=== PATIENT | male | born 1980 | race Caucasian/White ===

== ENCOUNTER 2018-11-27 19:10 | Inpatient (IN) | payer BC ==
[~2018-11-27] VITALS: Ht 175.3 cm; Wt 79.1 kg
[2018-11-27 19:32] LABS: BASOPHILS 0.1 % (0-2); EOSINOPHILS 0.1 % (0-7); HEMATOCRIT 49.5 % (42.0-54.0); HEMOGLOBIN 17.9 g/dL (13.5-17.5); IMMATURE GRANULOCYTES 0.3 % (0-5); LYMPHOCYTES 5.3 % (15-50); MCH 33.8 pg (26.0-34.0); MCHC 36.2 g/dL (31.0-37.0); MCV 93.4 fL (80.0-100.0); MONOCYTES 7.2 % (2-11); PLATELET COUNT 237 10x3/uL (130-400); WBC 15.6 10x3/uL (4.8-10.8)
[2018-11-27 19:47] LABS: ALBUMIN 3.9 g/dL (3.4-5.0); ALKALINE PHOSPHATASE 60 U/L (46-116); ALT (SGPT) 38 U/L (10-68); CALC OSMOLALITY 276 mosm/kg (275-300); CALCIUM 10.5 mg/dL (8.5-10.1); CARBON DIOXIDE 30.3 mmol/L (21.0-32.0); CHLORIDE - SERUM 99 mmol/L (98-107); GLUCOSE 126 mg/dL (74-106); POTASSIUM - SERUM 3.7 mmol/L (3.5-5.1); PROTEIN - SERUM 8.5 g/dL (6.4-8.2); SODIUM 139 mmol/L (136-145); UREA NITROGEN 5 mg/dL (7-18); eGFR NON AFRICAN AMERICAN 89 mL/min (90-120)
[2018-11-27 19:50] LABS: AMYLASE - SERUM 45 U/L (25-115); LIPASE 84 U/L (73-393); TROPONIN-I < 0.017 ng/mL (0.000-0.060)
--- NOTE | 2018-11-27 20:09 | NUR ---
ABD PAIN ASSESSMENT DONE BY THIS NURSE, NOT JEFFY RENO.
[2018-11-27 21:15] LABS: APPEARANCE CLEAR (CLEAR); BILIRUBIN NEGATIVE (NEGATIVE); COLOR YELLOW (YELLOW); GLUCOSE NEGATIVE (NEGATIVE); KETONE NEGATIVE (NEGATIVE); NITRITE NEGATIVE (NEGATIVE); PROTEIN NEGATIVE (NEGATIVE); UROBILINOGEN NORMAL (NORMAL)
[2018-11-27 21:17] LABS: BACTERIA FEW /hpf (NONE SEEN); RED CELLS - URINE 0-5 /hpf (0-5); WHITE CELLS - URINE RARE /hpf (0-5)
[2018-11-28] VITALS (7 sets, daily range): BP systolic 125–150; BP diastolic 76–84; Ht 175.3 cm; Wt 79.1 kg
--- NOTE | 2018-11-28 00:12 | NUR ---
REPORT RECEIVED AND ROOM PREPARED FOR PT'S ARRIVAL.
--- NOTE | 2018-11-28 00:30 | NUR ---
PT ARRIVED ON UNIT AT 0026 VIA WHEELCHAIR, ESCORTED BY HIS MOTHER AND ER NURSE. ASSISTED IN CHANGING INTO GOWN AND POSITIONED IN BED FOR COMFORT. ORIENTED TO ROOM AND CALL LIGHT SYSTEM. STARTED IV FLUIDS TO RIGHT UPPER ARM PER ORDER. PT NPO STATUS FOR SURGICAL CONSULT AM.
--- NOTE | 2018-11-28 00:57 | NUR ---
ADMISSION ASSESSMENT AND HISTORY COMPLETE. TELEMETRY PLACED PER ORDER.
[2018-11-28 06:20] LABS: BASOPHILS 0.1 % (0-2); EOSINOPHILS 0 % (0-7); IMMATURE GRANULOCYTES 0.3 % (0-5); LYMPHOCYTES 5.2 % (15-50); MCH 33.1 pg (26.0-34.0); MCHC 35.4 g/dL (31.0-37.0); MCV 93.6 fL (80.0-100.0); MEAN PLATELET VOLUME 11.3 fL (7.4-10.4); MONOCYTES 7.7 % (2-11); NEUTROPHILS 86.7 % (40-80); PLATELET COUNT 225 10x3/uL (130-400); RBC 5.13 10x6/uL (4.20-6.10); RDW 12.2 % (11.5-14.5); WBC 13.6 10x3/uL (4.8-10.8)
[2018-11-28 06:55] LABS: ALBUMIN 3.4 g/dL (3.4-5.0); ALKALINE PHOSPHATASE 56 U/L (46-116); AMYLASE - SERUM 34 U/L (25-115); BILIRUBIN - TOTAL 1.39 mg/dL (0.2-1.3); CALC OSMOLALITY 279 mosm/kg (275-300); CALCIUM 9.1 mg/dL (8.5-10.1); CARBON DIOXIDE 27.5 mmol/L (21.0-32.0); CHLORIDE - SERUM 102 mmol/L (98-107); CREATININE - SERUM 0.9 mg/dL (0.6-1.3); GLUCOSE 118 mg/dL (74-106); LIPASE 70 U/L (73-393); POTASSIUM - SERUM 3.7 mmol/L (3.5-5.1); PROTEIN - SERUM 6.9 g/dL (6.4-8.2); SODIUM 141 mmol/L (136-145); UREA NITROGEN 6 mg/dL (7-18); eGFR NON AFRICAN AMERICAN > 90 mL/min (90-120)
[2018-11-28 06:59] LABS: ALT (SGPT) 57 U/L (10-68)
--- NOTE | 2018-11-28 09:00 | NUR ---
ALERT AND ORIENTED WITH INTERMITTANT PAIN TO RUQ. LUNGS CTA WITH BOWEL SOUNDS NOTED X4. ENCOURAGED TO USE CALL LIGHT FOR ASSIST WITH FAMILY PRESENT. MORPHINE AND ZOFRAN GIVEN FOR PAIN AND NAUSEA.
--- NOTE | 2018-11-28 15:28 | MORECARE ---
CASE MANAGEMENT DISCHARGE SUMMARY PATIENT: ARMAND DAS UNIT: [id number] ADM DATE: 11/27/18 AGE: 38 : 80 SEX: M ROOM/BED: D.2227 AUTHOR: NELI,DOC PHYSICIAN: REFERRING PHYSICIAN: ANGIE HAUNG MD DATE OF SERVICE: 11/28/18 Discharge Plan Patient Name: ARMAND DAS Facility: [facility]:[place] : 1980 Planned Disposition: Home Anticipated Discharge Date: 12/01/18 Discharge Date: Expected LOS: 4 Initial Reviewer: [email or web address] Initial Review Date: 11/28/2018 Generated: 11/28/18 4:27 pm Comments DCP- Discharge Planning Updated by [email or web address]: Rhonda Lawson on 11/28/18 2:[address] Patient Name: ARMAND DAS Admission Status: ER Accout number: [id number] Admission Date: 11-27-2018 : 1980 Admission Diagnosis: Attending: ANGIE HUANG Current LOS: 1 Anticipated DC Date: 12-01-2018 Planned Disposition: Home Primary Insurance: [employer] [place] [facility] Discharge Planning Comments: CM met with patient to complete initial dc planning assessment. CM educated patient on the CM role and verbal consent given by patient to complete assessment. Patient lives at home with his parents. At discharge patient plans to return and feels this is a safe discharge. CM discussed availability of home health, rehab services, and medical equipment. Patient denied known discharge needs at this time. CM will continue to follow and will assist as needed with dc plans/needs. Weight Control Lecturer: Rhonda Lawson DCPIA - Discharge Planning Initial Assessment Updated by [email or web address]: Rhonda Lawson on 11/28/18 3:20 pm * Is the patient Alert and Oriented? Yes * How many steps to enter\exit or inside your home? 4/0 * PCP None * [facility] * Preadmission Environment Home with Family * ADLs Independent * Equipment None * List name and contact numbers for known caregivers / representatives who currently or will assist patient after discharge: Tayler Das - mother - [phone] Jermain Kulkarni father - [phone] * Verbal permission to speak to the caregivers and representatives has been obtained from the patient. Yes * Community resources currently utilized None * Additional services required to return to the preadmission environment? No * Can the patient safely return to the preadmission environment? Yes * Has this patient been hospitalized within the prior 30 days at any hospital? No Patient Name: ARMAND DAS Page 70051 at 1528 All edits/amendments must be made on the electronic document DICTATION DATE: 11/28/181526 MARKET MAKER: NAHOMI 11/28/181526 RPT#: [id number] DC DATE: STATUS: ADM IN [facility] [address] [place] [address] END OF REPORT
--- NOTE | 2018-11-28 19:00 | NUR ---
BEDSIDE REPORT RECEIVED AND CARE OF PT ASSUMED. PT SITTING UP IN HIGH BAILEY'S POSITION VISITING WITH FAMILY MEMBER. IV TO RIGHT UPPER ARM PATENT WITH NS INFUSING AT 100 ML/HR. DILAUDID TIE IN MACHINE OPERATOR IN USE FOR PAIN CONTROL.
--- NOTE | 2018-11-28 21:19 | NUR ---
HS MEDICATIONS GIVEN. WILL CONTINUE TO MONITOR FOR NEEDS.
[2018-11-29] VITALS: BP 144/81
[2018-11-29 04:00] VITALS: BP 135/80
[2018-11-29 07:57] VITALS: BP 125/76
--- NOTE | 2018-11-29 09:00 | NUR ---
ALERT AND ORIENTED X4.RUQ PAIN CONTROLLED WITH DILAUDID CLIENT CARE COORDINATOR. UP AD JANETT WITH SHOWER RECEIVED THIS AM. TELEMETRY INTACT. HRRR AND ABDOMEN SOFT WITH TENDERNESS NOTED TO RUQ ON PALPATION WITH BS NOTEDX4. ENCOURAGED TO USE CALL LIGHT FOR ASSIST.
[2018-11-29 10:33] LABS: BASOPHILS 0.1 % (0-2); EOSINOPHILS 0.1 % (0-7); HEMATOCRIT 45.7 % (42.0-54.0); HEMOGLOBIN 16.3 g/dL (13.5-17.5); IMMATURE GRANULOCYTES 0.3 % (0-5); LYMPHOCYTES 5.2 % (15-50); MCH 33.7 pg (26.0-34.0); MCHC 35.7 g/dL (31.0-37.0); MCV 94.6 fL (80.0-100.0); MEAN PLATELET VOLUME 10.3 fL (7.4-10.4); NEUTROPHILS 87.3 % (40-80); PLATELET COUNT 222 10x3/uL (130-400); RBC 4.83 10x6/uL (4.20-6.10); RDW 12.2 % (11.5-14.5); WBC 14.1 10x3/uL (4.8-10.8)
[2018-11-29 10:42] LABS: CALC OSMOLALITY 274 mosm/kg (275-300); CALCIUM 9.3 mg/dL (8.5-10.1); CARBON DIOXIDE 27.2 mmol/L (21.0-32.0); CHLORIDE - SERUM 101 mmol/L (98-107); GLUCOSE 85 mg/dL (74-106); POTASSIUM - SERUM 3.3 mmol/L (3.5-5.1); SODIUM 139 mmol/L (136-145); UREA NITROGEN 7 mg/dL (7-18); eGFR NON AFRICAN AMERICAN 89 mL/min (90-120)
[2018-11-29 12:58] VITALS: BP 135/84
[2018-11-29 16:07] VITALS: BP 127/80
--- NOTE | 2018-11-29 19:00 | NUR ---
BEDSIDE REPORT RECEIVED AND CARE OF PT ASSUMED. PT LYING IN HIGH BAILEY'S POSITION VISITING WITH FAMILY MEMBERS. IV TO RIGHT UPPER ARM PATENT WITH NS INFUSING AT 100 ML/HR. WILL MONITOR FOR NEEDS.
[2018-11-29 19:45] VITALS: BP 133/87
[2018-11-30] VITALS (7 sets, daily range): BP systolic 117–139; BP diastolic 72–87
[2018-11-30 06:47] LABS: BASOPHILS 0.2 % (0-2); EOSINOPHILS 0.6 % (0-7); HEMOGLOBIN 14.2 g/dL (13.5-17.5); IMMATURE GRANULOCYTES 0.2 % (0-5); LYMPHOCYTES 6.3 % (15-50); MCH 32.7 pg (26.0-34.0); MCHC 34.6 g/dL (31.0-37.0); MCV 94.5 fL (80.0-100.0); MEAN PLATELET VOLUME 10.5 fL (7.4-10.4); MONOCYTES 6.8 % (2-11); NEUTROPHILS 85.9 % (40-80); PLATELET COUNT 244 10x3/uL (130-400); RBC 4.34 10x6/uL (4.20-6.10); RDW 12.4 % (11.5-14.5); WBC 12.4 10x3/uL (4.8-10.8)
[2018-11-30 07:07] LABS: CALC OSMOLALITY 275 mosm/kg (275-300); CALCIUM 8.9 mg/dL (8.5-10.1); CARBON DIOXIDE 26.6 mmol/L (21.0-32.0); CHLORIDE - SERUM 103 mmol/L (98-107); CREATININE - SERUM 0.8 mg/dL (0.6-1.3); GLUCOSE 106 mg/dL (74-106); POTASSIUM - SERUM 3.2 mmol/L (3.5-5.1); SODIUM 139 mmol/L (136-145); UREA NITROGEN 8 mg/dL (7-18); eGFR NON AFRICAN AMERICAN > 90 mL/min (90-120)
--- NOTE | 2018-11-30 07:57 | NUR ---
ALERT AND ORIENTED WITH PAIN MANAGED WITH DILAUDID RN SANE. TELEMETRY INTACT AND DENIES ANY CHEST PAIN OR DISCOMFORT. HRRR. ABDOMEN BS NOTED WITH TENDERNESS TO ROQ ANTERIOR. UP ADLIB. FAMILY PRESENT AND ENCOURAGED TO USE CALL LIGHT FOR ASSSIT.
[2018-12-01 04:00] VITALS: BP 133/83
--- NOTE | 2018-12-01 07:30 | NUR ---
PT RESTING IN BED WITH FAMILY AT BEDSIDE. NO ACUTE DISTRESS NOTED AT THIS TIME. PT REPORTS PAIN 5 AT THIS TIME. DILAUDID WIND TURBINE SERVICE TECHNICIAN INTACT AND IN USE AND REPORTS DECREASED PAIN WITH MED. IV TO RIGHT UPPER ARM WITH NS @ 100ML/HR INFUSING VIA PUMP. SITE WITHOUT REDNESS OR EDEMA. PT REPORTS NPO SINCE MIDNIGHT. STRESSED IMPORTANCE OF MAINTAINING NPO STATUS FOR UPCOMING PROCEDURE. PT VOICES UNDERSTANDING. DENIES FURTHER NEEDS AT THIS TIME. CL WITHIN REACH. ENCOURAGED TO CALL WITH NEEDS. CONTINUE POC
[2018-12-01 08:37] VITALS: BP 130/83
[2018-12-01 12:06] VITALS: BP 135/78
[2018-12-01 17:10] VITALS: BP 146/88
--- NOTE | 2018-12-01 20:00 | NUR ---
ALERT RESTING IN BED, DILAUDID COMBINATION TECHNICIAN IN USE FOR PAIN CONTROL, SEE SHIFT ASSESSMENT, CALL LIGHT IN REACH, DENIES NEEDS
[2018-12-01 21:14] VITALS: BP 121/85
[2018-12-02] VITALS (13 sets, daily range): BP systolic 117–146; BP diastolic 66–88
--- NOTE | 2018-12-02 07:15 | NUR ---
PT RESTING IN BED WITH FAMILY AT BEDSIDE. PT AWAITING BEING TAKEN FOR SURGERY THIS AM. INFORMED PT AND FAMILY THAT SURGERY HAD CALLED AND PREPARING TO COME TRANSFER HIM FOR SURGERY. IV TO LEFT UPPER ARM WITH NS @ 100ML/HR, DILAUDID MECHANICAL STRIPER INTACT. REPORTS MTZ 08/01 AT THIS TIME. PT TAKEN TO SURGERY VIA BED. NO ACUTE DISTRESS NOTED.
--- NOTE | 2018-12-02 09:53 | NUR ---
50 CC BLOODY OUTPUT FROM JOSEE DRAIN AT THIS TIME.
--- NOTE | 2018-12-02 10:30 | NUR ---
RECIEVE PT FROM SURGERY VIA BED. 3 LAP SITES AND JOSEE DRAIN TO ABDOMEN NOTED. DRESSINGS C/D/I. O2 @ 3L NC IN PLACE. REPORTS PAIN 6/10 AT THIS TIME. NO ACUTE DISTRESS NOTED AT THIS TIME.
--- NOTE | 2018-12-02 20:00 | NUR ---
ASSESSMENT PER FLOWSHEET. O2 AT 3L/M PER NC. IV PATENT RT UPPER ARM OF NS AT 100CC'S/HR HEADWAITRESS OF DILAUDID IN USE WITH SETTINGS AT 0.2MG Q10 MIN W/4MG Q4H L/O. LAP SITES TO ABDOMEN X3 C/D/I. JOSEE DRAIN PATENT AND COMPRESSED WITH BLOODY DRAINAGE NOTED. IN ROOM. SCD'S ON.
--- NOTE | 2018-12-02 21:00 | NUR ---
UP IN HALLWAY WALKED AROUND NURSE'S STATION X2 TOLERATED WELL. VOIDS WELL IN BR BACK TO BED SR UP X2 CALL LIGHT WITHIN REACH AT BEDSIDE.
--- NOTE | 2018-12-03 | NUR ---
EYES CLOSED RESPIRATIONS WITH EASE AND UNLABORED.
[2018-12-03 01:11] VITALS: BP 117/91
[2018-12-03 05:18] VITALS: BP 124/80
[2018-12-03 05:38] LABS: BASOPHILS 0.2 % (0-2); EOSINOPHILS 0.9 % (0-7); HEMATOCRIT 40.2 % (42.0-54.0); HEMOGLOBIN 13.9 g/dL (13.5-17.5); IMMATURE GRANULOCYTES 0.4 % (0-5); LYMPHOCYTES 10.9 % (15-50); MCH 32.9 pg (26.0-34.0); MCHC 34.6 g/dL (31.0-37.0); MEAN PLATELET VOLUME 10.4 fL (7.4-10.4); MONOCYTES 8.7 % (2-11); NEUTROPHILS 78.9 % (40-80); RBC 4.23 10x6/uL (4.20-6.10); RDW 12.9 % (11.5-14.5); WBC 10.5 10x3/uL (4.8-10.8)
[2018-12-03 05:42] LABS: PLATELET COUNT 318 10x3/uL (130-400)
[2018-12-03 06:08] LABS: ALBUMIN 2.2 g/dL (3.4-5.0); ALKALINE PHOSPHATASE 96 U/L (46-116); ALT (SGPT) 56 U/L (10-68); BILIRUBIN - TOTAL 0.94 mg/dL (0.2-1.3); CALC OSMOLALITY 280 mosm/kg (275-300); CALCIUM 8.8 mg/dL (8.5-10.1); CARBON DIOXIDE 29.6 mmol/L (21.0-32.0); CHLORIDE - SERUM 105 mmol/L (98-107); CREATININE - SERUM 0.9 mg/dL (0.6-1.3); GLUCOSE 102 mg/dL (74-106); POTASSIUM - SERUM 3.8 mmol/L (3.5-5.1); PROTEIN - SERUM 6.9 g/dL (6.4-8.2); SODIUM 142 mmol/L (136-145); UREA NITROGEN 6 mg/dL (7-18); eGFR NON AFRICAN AMERICAN > 90 mL/min (90-120)
[2018-12-03] MEDS ORDERED: HYDROCODON-ACE1 EA10 PO (09:09)
--- NOTE | 2018-12-03 09:09 | OP ---
PATIENT NAME: ARMAND DAS MEDICAL RECORD: [id number] :[birth year] LOCATION:D.MS [id number] ADMISSION DATE:11/27/18 SURGEON: BISHOP HUANG MD DATE OF OPERATION: 12/02/2018 PREOPERATIVE DIAGNOSES: 1. Acute cholecystitis. 2. History of hydrocephalus. 3. Seizure disorder. POSTOPERATIVE DIAGNOSES: 1. Acute cholecystitis. 2. History of hydrocephalus. 3. Seizure disorder. PROCEDURE: Laparoscopic cholecystectomy. SURGEON: Bishop Huang MD REPORT OF PROCEDURE: The patient's abdomen was prepped and draped in sterile fashion. A cutdown was made on the superior aspect of the umbilicus and 0 Vicryls were placed in the fascia bilaterally. The fascia was incised with a 15-blade and then I bluntly opened up to the peritoneal cavity. A 12-mm Nuha was then placed. Under direct visualization, a 5-mm trocar was placed in the right lateral abdomen. The patient had a lot of adhesions present from the acute cholecystitis and also from previous ADJUNCT FACULTY shunt placement. We teased down these adhesions with blunt and sharp dissection. At this point, we were able to place 5-mm trocars in the epigastrium and another in the right subcostal region. There were a lot of inflammatory changes around the gallbladder. We gently teased these down. The gallbladder was noted to be very distended and swollen. There was no sign of gangrene or perforation. We then accessed the gallbladder fundus and aspirated some of the fluid out to make it more easily graspable. We dissected down to the cystic duct. The cystic duct was dilated and inflamed. The patient had 2 branches of the cystic artery and these were clipped proximally and distally and ligated in standard fashion. The cystic duct was then dissected free and we were able to clip it proximally and distally. Once this was clipped and cut, then we took the gallbladder off the liver bed and placed into an Endo Catch bag. We irrigated out the right upper quadrant and treated the liver bed with electrocautery. At the conclusion of the case, there was no sign of any active bleeding and there was no sign of bile leakage. The 15 round Hernan drain was inserted through the right lateral subcostal incision site and placed near the gallbladder fossa. This was sutured into place with a 3-0 nylon. The ports and insufflation were then removed and the gallbladder was taken out through the umbilicus. The umbilical fascia was closed with interrupted 0 Vicryls times 3. The wounds were irrigated out with normal saline and infused with 10 mL of 0.25% Marcaine with epinephrine. The skin incisions were all closed with subcutaneous 5-0 Monocryl and dressed appropriately. COMPLICATIONS: None. CONDITION: Stable. ANESTHESIA: General endotracheal and local. BLOOD LOSS: 50 mL. OPERATIVE REPORT [id number] ARMAND DAS TRANSINT:[id number] Voice Confirmation ID: [id number] DOCUMENT ID: [id number] BISHOP HUANG MD at 0909 CC: [id number] DICTATION DATE: 12/02/18921 CNC GRINDER: 12/02/18 1226 ADM IN [facility] [id number] [place] [address]
[2018-12-03 09:22] VITALS: BP 126/84
--- NOTE | 2018-12-03 09:59 | MORECARE ---
CASE MANAGEMENT DISCHARGE SUMMARY PATIENT: ARMAND DAS UNIT: [id number] ADM DATE: 11/27/18 AGE: 38 : 80 SEX: M ROOM/BED: D.2227 AUTHOR: NELIDOC PHYSICIAN: REFERRING PHYSICIAN: ANGIE HUANG MD DATE OF SERVICE: 12/03/18 Discharge Plan Patient Name: ARMAND DAS Facility: [facility]:[place] : 1980 Planned Disposition: Home Anticipated Discharge Date: 12/01/18 Discharge Date: Expected LOS: 4 Initial Reviewer: [email or web address] Initial Review Date: 11/28/2018 Generated: 12/03/18 10:59 am Comments DCP- Discharge Planning Updated by [email or web address]: Rhonda Lawson on 12/03/18 8:[address] Patient Name: ARMAND DAS Encounter No: [id number] : 1980 Primary Insurance: [employer] [facility] Anticipated DC Date: 12-01-2018 Planned Disposition: Home External Planned Provider: : DCP follow-up note: Patient and family in agreement with discharge plan. No changes to plan. Case management will follow and assist as needed. Rhonda Lawson DCP- Discharge Planning Updated by [email or web address]: Rhonda Lawson on 11/28/18 2:[address] Patient Name: ARMAND DAS Admission Status: ER Accout number: [id number] Admission Date: 11-27-2018 : 1980 Admission Diagnosis: Attending: ANGIE HUANG Current LOS: 1 Anticipated DC Date: 12-01-2018 Planned Disposition: Home Primary Insurance: [employer] [facility] Discharge Planning Comments: CM met with patient to complete initial dc planning assessment. CM educated patient on the CM role and verbal consent given by patient to complete assessment. Patient lives at home with his parents. At discharge patient plans to return and feels this is a safe discharge. CM discussed availability of home health, rehab services, and medical equipment. Patient denied known discharge needs at this time. CM will continue to follow and will assist as needed with dc plans/needs. Postal Service Mail Processor: Rhonda Lawson DCPIA - Discharge Planning Initial Assessment Updated by [email or web address]: Rhonda Lawson on 11/28/18 3:20 pm * Is the patient Alert and Oriented? Yes * How many steps to enter\exit or inside your home? 4/0 * PCP None * [facility] * Preadmission Environment Home with Family * ADLs Independent * Equipment None * List name and contact numbers for known caregivers / representatives who currently or will assist patient after discharge: Tayler Das - mother - [phone] Jermain Das - father - [phone] * Verbal permission to speak to the caregivers and representatives has been obtained from the patient. Yes * Community resources currently utilized None * Additional services required to return to the preadmission environment? No * Can the patient safely return to the preadmission environment? Yes * Has this patient been hospitalized within the prior 30 days at any hospital? No Last DP export: 11/28/18 2:28 pm Patient Name: ARMAND DAS Page 20662 at 0959 All edits/amendments must be made on the electronic document DICTATION DATE: 12/03/18957 ASSOCIATE PASTOR: NAHOMI 12/03/18957 RPT#: [id number] DC DATE: STATUS: ADM IN [facility] [address] [place] [address] END OF REPORT
--- NOTE | 2018-12-03 12:08 | NUR ---
DC HOME AT THIS TIME PT AND VOICE UNDERSTANDING OF DC ORDERS. IV DC WITH TIP INTACT. EDUCATED ON DRAIN CARE AND EMPTYING VOICE UNDERSTANDING. STABLE CONDITION UPON DEPARTURE.
--- NOTE | 2018-12-04 16:23 | MORECARE ---
CASE MANAGEMENT DISCHARGE SUMMARY PATIENT: ARMAND DAS UNIT: [id number] ADM DATE: 11/27/18 AGE: 38 : 80 SEX: M ROOM/BED: D.2227 AUTHOR: NELIDOC PHYSICIAN: REFERRING PHYSICIAN: ANGIE HUANG MD DATE OF SERVICE: 12/04/18 Discharge Plan Patient Name: ARMAND DAS Facility: [facility]:[place] : 1980 Planned Disposition: Home Anticipated Discharge Date: 12/01/18 Discharge Date: 12/03/2018 Expected LOS: 4 Initial Reviewer: [email or web address] Initial Review Date: 11/28/2018 Generated: 12/04/18 5:23 pm Comments DCP- Discharge Planning Updated by [email or web address]: Rhonda Lawson on 12/03/18 8:[address] Patient Name: ARMAND DAS Encounter No: [id number] : 1980 Primary Insurance: [employer] [facility] Anticipated DC Date: 12-01-2018 Planned Disposition: Home External Planned Provider: : DCP follow-up note: Patient and family in agreement with discharge plan. No changes to plan. Case management will follow and assist as needed. Rhonda Lawson DCP- Discharge Planning Updated by [email or web address]: Rhonda Lawson on 11/28/18 2:[address] Patient Name: ARMAND DAS Admission Status: ER Accout number: [id number] Admission Date: 11-27-2018 : 1980 Admission Diagnosis: Attending: ANGIE HUANG Current LOS: 1 Anticipated DC Date: 12-01-2018 Planned Disposition: Home Primary Insurance: [employer] [facility] Discharge Planning Comments: CM met with patient to complete initial dc planning assessment. CM educated patient on the CM role and verbal consent given by patient to complete assessment. Patient lives at home with his parents. At discharge patient plans to return and feels this is a safe discharge. CM discussed availability of home health, rehab services, and medical equipment. Patient denied known discharge needs at this time. CM will continue to follow and will assist as needed with dc plans/needs. Supervisor Home Energy Consultant: Rhonda Lawson DCPIA - Discharge Planning Initial Assessment Updated by [email or web address]: Rhonda Lawson on 11/28/18 3:20 pm * Is the patient Alert and Oriented? Yes * How many steps to enter\exit or inside your home? 4/0 * PCP None * [facility] * Preadmission Environment Home with Family * ADLs Independent * Equipment None * List name and contact numbers for known caregivers / representatives who currently or will assist patient after discharge: Tayler Das - mother - [phone] Jermain Das - father - [phone] * Verbal permission to speak to the caregivers and representatives has been obtained from the patient. Yes * Community resources currently utilized None * Additional services required to return to the preadmission environment? No * Can the patient safely return to the preadmission environment? Yes * Has this patient been hospitalized within the prior 30 days at any hospital? No Last DP export: 12/03/18 8:59 a Patient Name: ARMAND DAS Page 08267 at 1623 All edits/amendments must be made on the electronic document DICTATION DATE: 12/04/181621 ENGINEERING LECTURER: NAHOMI 12/04/181621 RPT#: [id number] DC DATE:12/03/18 STATUS: DIS IN [facility] [address] [place] [address] END OF REPORT
== END 2018-12-03 12:11 | disposition home or self-care (01) | DRG 419 ==
LOC: D.ER 19:10 → D.MS 23:34
PROVIDERS: Family Medicine; Surgery; ADMIT Surgery; ATTEND Surgery
PROC: 0FT44ZZ Resection of Gallbladder, Percutaneous Endoscopic Approach (ICD-10-PCS; principal; 2018-12-02 07:15)
DX: K81.0 Acute cholecystitis (principal); N28.1 Cyst of kidney, acquired

== ENCOUNTER 2019-02-09 06:04 | Emergency (ER) | payer BC ==
[~2019-02-09] VITALS: Ht 175.3 cm; Wt 77.3 kg
[~2019-02-09 06:04] MED LIST: HYDROCODON-ACE1 EA10 PO
[2019-02-09 06:08] VITALS: Ht 175.3 cm; Wt 77.3 kg
[2019-02-09 08:03] LABS: BASOPHILS 0.1 % (0-2); EOSINOPHILS 0 % (0-7); HEMOGLOBIN 18.5 g/dL (13.5-17.5); IMMATURE GRANULOCYTES 0.3 % (0-5); LYMPHOCYTES 4.7 % (15-50); MCH 32.8 pg (26.0-34.0); MCHC 34.3 g/dL (31.0-37.0); MCV 95.7 fL (80.0-100.0); MEAN PLATELET VOLUME 10.7 fL (7.4-10.4); MONOCYTES 4.8 % (2-11); NEUTROPHILS 90.1 % (40-80); RBC 5.64 10x6/uL (4.20-6.10); RDW 13.8 % (11.5-14.5); WBC 15.4 10x3/uL (4.8-10.8)
[2019-02-09 08:10] LABS: CALC OSMOLALITY 275 mosm/kg (275-300); CALCIUM 9.7 mg/dL (8.5-10.1); CARBON DIOXIDE 27.1 mmol/L (21.0-32.0); CHLORIDE - SERUM 100 mmol/L (98-107); CREATININE - SERUM 0.9 mg/dL (0.6-1.3); GLUCOSE 127 mg/dL (74-106); POTASSIUM - SERUM 3.6 mmol/L (3.5-5.1); SODIUM 137 mmol/L (136-145); UREA NITROGEN 12 mg/dL (7-18); eGFR NON AFRICAN AMERICAN > 90 mL/min (90-120)
[2019-02-09 08:11] LABS: PLATELET COUNT 221 10x3/uL (130-400)
[2019-02-09 08:18] LABS: ALKALINE PHOSPHATASE 79 U/L (46-116); ALT (SGPT) 43 U/L (10-68); BILIRUBIN - TOTAL 1.19 mg/dL (0.2-1.3); CREATINE KINASE 74 UL (21-232); PROTEIN - SERUM 8.4 g/dL (6.4-8.2)
[2019-02-09 09:06] VITALS: BP 142/78
== END 2019-02-09 09:35 | disposition other institution (70) ==
LOC: D.ER 06:04
PROVIDERS: Family Medicine
DX: G91.9 Hydrocephalus, unspecified (principal); R51 Headache; Z98.2 Presence of cerebrospinal fluid drainage device